=== PATIENT | male | born 1970 | race Two or more races ===

== ENCOUNTER 2025-01-21 15:19 | Emergency (ER) | payer BC ==
[~2025-01-21] VITALS: Ht 180.3 cm; Wt 79.4 kg
[2025-01-21 15:26] VITALS: TEMP 98.3
[2025-01-21 16:22] LABS: PLATELET COUNT (AUTO) 294 K/uL (150-450); RED BLOOD CELL COUNT(AUTO) 4.85 MIL/uL (4.5-6.0); RED CELL DISTRIBUTION WIDTH 13.0 % (11.5-15.0); WHITE BLOOD COUNT (AUTO) 6.8 K/uL (4.3-11.0)
[2025-01-21 16:31] LABS: CALCIUM, SERUM 9.1 mg/dL (8.5-10.1); CREATININE 0.9 mg/dL (0.6-1.3); SODIUM SERUM 138 mmol/L (136-145); UREA NITROGEN, BLOOD 17 mg/dL (7-18)
[2025-01-21] MEDS ORDERED: KETOROLAC TROMETHAMINE 15 MG/ML VIAL ONE (17:53)
[2025-01-21] MEDS: KETOROLAC TROMETHAMINE 15 MG/ML VIAL IV ONE (18:00)
[2025-01-21] MEDS: LORAZEPAM INJ 2 MG/ML VIAL IV ONE (18:06)
[2025-01-21] MEDS: IV NS 0.9% 1,000 ML BAG IV ONE (18:06)
[2025-01-21] MEDS ORDERED: CYCL5TAB PO (18:24)
[2025-01-21] MEDS ORDERED: IBUP-1955 PO (18:24)
[2025-01-21 18:33] VITALS: BP 129/89; O2SAT 100
== END 2025-01-21 18:33 | disposition home or self-care (01) ==
LOC: ER 15:27
DX: R07.89 Other chest pain (principal); I10 Essential (primary) hypertension; Z91.048 Other nonmedicinal substance allergy status
CPT/HCPCS: 99285; 96374; 71045; 93005; 85025; 80048; 36415; 84484 ×2; J1885